=== PATIENT | female | born 1985 | race Caucasian/White ===

== ENCOUNTER → 2016-07-10 | Outpatient (CLI) | payer BC ==
[~2016-07-10] MED LIST: MTR600X PO; OXYC5TAB PO; PRENTAB26 PO
--- NOTE | 2016-07-10 12:43 | MAMMOGRAPHY REPORT ---
ULTRASOUND OF LEFT BREAST: 07/10/2016 CLINICAL HISTORY: The patient reports a focal area of pain in her left breast which she reports as a sharp pain and notices it mostly upon straining or coughing. She has been breast-feeding for 9 mon ths and the pain started at the onset of breast-feeding. She does feel that the pain has been slowl y improving since breast-feeding less frequently. She denies any palpable lumps. COMPARISON: No prior exams were available for comparison. TECHNIQUE: Real-time targeted ultrasound of the left breast was performed. FINDINGS: Real-time, high resolution targeted ultrasound was performed of the area of pain pointed out by the patient, in the left breast at 7:00 radiating towards the nipple. Sonographically normal tissue is seen in this region, without evidence of a mass or other suspicious sonographic abnormality. IMPRESSION: ACR BI-RADS CATEGORY 1: NEGATIVE No etiology for focal left breast pain evident, with no suspicious sonographic abnormality seen in t he region. There is no sonographic evidence of malignancy. Recommend clinical follow-up. The aron ent was verbally notified of the results. Jada Gerber M.D. /:07/10/2016 10:25:25 Assistant Office Manager: Jada Gerber MD, [facility] letter sent: Normal 1/2 BI-RADS Code: ACR BI-RADS Category 1: Negative
== END | disposition home or self-care (01) ==
LOC: C.MAMM 10:04
PROVIDERS: ATTEND Obstetrics & Gynecology
DX: N64.4 Mastodynia (principal)

== ENCOUNTER → 2016-12-04 | Outpatient (CLI) | payer BC | END | disposition home or self-care (01) | LOC: C.PAPS 14:14 | PROVIDERS: ATTEND Physician Assistant | DX: Z01.419 Encounter for gynecological examination (general) (routine) without abnormal findings (principal) ==

== ENCOUNTER → 2017-03-05 | Outpatient (CLI) | payer BC | END | disposition home or self-care (01) | LOC: C.LAB1850 09:41 | PROVIDERS: ATTEND Physician Assistant | DX: N64.52 Nipple discharge (principal) ==

== ENCOUNTER 2022-01-15 05:39 | Inpatient (IN) ==
--- NOTE | 2022-01-06 09:04 | Anesthesiology Consultation ---
Date of Service January 06, 2022 Assessment & Plan (1) Encounter for pre-operative examination: COVID screening: Per assessment on 01/05: No known COVID-19 positive contacts or current COVID-19 related symptoms. Travel screen negative. Surgeon arranging preop COVID testing. Awaiting results. Chart Review Chart Review: clerk entry level initiated History Surgery Operation Date: 01/15/22 07:30 Proposed Procedures p Section (Delivery of Baby Through Abdominal Incision) With - Chika Moran MD, FACOG s Bilateral Tubal Ligation - Chika Moran MD, FACOG Height/Weight Height: 5 ft 3.5 in Weight: 73.482 kg Allergies Allergy/AdvReac Type Severity Reaction Status Date / Time clindamycin AdvReac Unknown Nausea Verified 01/05/22 16:10 erythromycin base AdvReac Unknown nausea Verified 01/05/22 16:10 Medications Home Medications Medication Instructions Recorded Confirmed Last Taken prenat.vits,severiano,bbb-kxfy-usdoy 1 tab PO QAM 06/11/21 01/05/22 Unknown famotidine 20 mg tablet 20 mg PO HS 10/31/21 01/05/22 Unknown ferrous sulfate 325 mg (65 mg 325 mg PO HS 10/31/21 01/05/22 Unknown iron) tablet valacyclovir 500 mg tablet 500 mg PO BID #60 tabs 12/26/21 01/05/22 Unknown (Valtrex) breast pump #1 ea 12/30/21 01/02/22 Unknown Past Medical History Medical History (Updated 01/06/22 @ 09:03 by Virginia Hudson) Acid reflux Gastritis Genital herpes HX, HAD FLARE WAS STARTED THIS AND REASON FOR PROPHYLACTIC FABIANO ACYCLOVIR UNTIL DELIVERY History of Helicobacter pylori infection Remote dx ~2018 History of HPV infection ~2018 Hydronephrosis Plan for further f/u per pt Low iron During Past Family History Family History Grandfather Heart disease Stroke Hypertension Diabetes Aunt Breast cancer Denies family history of Ovarian cancer Lung cancer Colorectal cancer Past Surgical History Surgical History H/O colonoscopy H/O endoscopy History of colposcopy Hx LEEP (loop electrosurgical excision procedure), cervix, Previous section [place] teeth extracted Social History Smoking Status: Never smoker Do You Dip or Chew Tobacco: No substance use type: does not use Testing Laboratory Results 10/07/21 SODIUM 136 POTASSIUM 3.8 CHLORIDE 101 CO2 22 BUN 11 CREATININE 0.8 GLUCOSE 91 TSH 1.77 Electrocardiogram Date: 10/07/21 Findings: + NSR @ (74)
[2022-01-15] MEDS ORDERED: ceFAZolin 2,000 MG in SYRINGE 0 ML IV SCH (06:00)
[2022-01-15] MEDS ORDERED: CITRIC ACID/SODIUM CITRATE 15 ML UDC PO SCH (06:00)
--- NOTE | 2022-01-15 06:15 | History & Physical Report ---
Date of Service January 15, 2022 Assessment & Plan (1) 39 weeks gestation of : (2) Previous delivery affecting : (3) Request for sterilization: Plan Patient to be admitted for planned repeat c/s and bilateral tubal ligation. She is aware of alternative to include and other control options. She desires to proceed and consent reviewed and signed. Aware of permanence, irreversibility, failure, regret and poss ectopic with tubal sterlizat ion as well as alternatives. Labs today. Consent reviewed and signed. Risks, alt and ocmplications reviewed in detail. Admission and Anticipated Discharge Date Admission Date: January 15, 2022 History of Present Illness Chief Complaint: planned c/s Primary Care Provider: José Miguel García MD 36yo at 39+wks tiara presents to L&D for planned repeat cs due to prior c/s. She denies rom, vb. or ctx. +FM. PNC c/b 1. Prior c/s, desires repeat 2. Desires sterilization 3. H/o HSV, on valtrex 4. Maternal hydronephrosis, followed by [facility] PNL rh pos, ri, gbs neg OBH: prior c/s x 1, failed induction, [place] [facility]: h/o LEEP, recent nl pap, +HSV Allergies Allergy/AdvReac Type Severity Reaction Status Date / Time clindamycin AdvReac Unknown Nausea Verified 01/14/22 09:40 erythromycin base AdvReac Unknown nausea Verified 01/14/22 09:40 Home Medications Medication Instructions Recorded Confirmed Type prenat.vits,severiano,qea-ecns-tkbdy 1 tab PO QAM 06/11/21 01/14/22 History famotidine 20 mg tablet 20 mg PO HS 10/31/21 01/14/22 History ferrous sulfate 325 mg (65 mg 325 mg PO HS 10/31/21 01/14/22 History iron) tablet valacyclovir 500 mg tablet 500 mg PO BID #60 tabs 12/26/21 01/14/22 Rx (Valtrex) breast pump #1 ea 12/30/21 01/14/22 Rx Patient History Medical History (Updated 01/15/22 @ 06:13 by Chika Moran MD, FACOG) Acid reflux Gastritis Genital herpes HX, HAD FLARE WAS STARTED THIS AND REASON FOR PROPHYLACTIC VALACYCLOVIR UNTIL DELIVERY History of Helicobacter pylori infection Remote dx ~2018 History of HPV infection ~2018 Hydronephrosis Plan for further f/u per pt Low iron During Surgical History H/O colonoscopy H/O endoscopy History of colposcopy Hx LEEP (loop electrosurgical excision procedure), cervix, Previous section [place] teeth extracted Family History Grandfather Heart disease Stroke Hypertension Diabetes Aunt Breast cancer Denies family history of Ovarian cancer Lung cancer Colorectal cancer Social History Smoking Status: Never smoker Do You Dip or Chew Tobacco: No; Hx Alcohol Use: No Hx Substance Use: No Preferred Language: Slovak Communication Ability: Effective Surgical Assistant Certified Required: No Beliefs That Will Affect Care: None marital status: marital status details: Maximilian Saleh (35) [phone] Current Living Situation: Spouse and Family Current Living Situation Comment: and son current occupational status: employed current occupation: [employer] Other Information That Helps Us Care for You: No Feels Safe at Home: Yes Safety Concerns: Feels Safe At This Time Assistive Devices: None Review of Systems as per Subjective / HPI Physical Exam Constitutional: WD/WN, vitals as above Respiratory: normal respiratory effort, lungs clear to auscultation Cardiovascular: Rate/Rhythm: regular rate and regular rhythm Gastrointestinal (Abdomen): soft gravid nt Musculoskeletal: no edema nontender calves Neurologic: grossly normal Psychiatric: A+Ox3, euthymic affect Genitourinary: +FHTs Results & Data ([facility]) Vital Signs (Past 12 Hours) Vital Signs Temp Resp 01/15/22 05:52 98.2 F 18 Coding Level of Care Code None Diagnoses 39 weeks gestation of Z3A.39 Previous delivery affecting O34.219 Request for sterilization Z30.2
[2022-01-15 06:18] LABS: Basophils # (auto) 0.02 K/uL (0-0.2); Basophils % (auto) 0.2 %; Eosinophils # (auto) 0.12 K/uL (0-0.50); Eosinophils % (auto) 1.5 %; Hematocrit (blood only) 33.6 % (34.1-44.9); Hemoglobin 11.5 g/dl (12.0-16.0); Immature Granulocytes % (auto) 1.2 %; Lymphocytes # (auto) 2.34 K/uL (1.2-3.4); Mean Corpuscular Hemoglobin 31.9 pg (25.0-34.0); Mean Corpuscular Hgb Conc 34.2 g/dL (32.0-36.0); Mean Corpuscular Volume 93.3 fL (80.0-100.0); Mean Platelet Volume 10.5 fL (9.4-12.3); Monocytes # (auto) 0.69 K/uL (0.24-0.82); Monocytes % (auto) 8.5 %; Neutrophils # (auto) 4.81 K/uL (1.4-6.5); Neutrophils % (auto) 59.6 %; Platelet Count 156 K/uL (130-400); RDW Coefficient of Variation 13.2 % (11.5-14.5); RDW Standard Deviation 44.7 fL (36.4-46.3); White Blood Count 8.08 K/ul (4.8-10.8)
[2022-01-15] MEDS ORDERED: MoRPHine SULFATE PF 1 MG/ML 10 ML AMP/VIAL ONE (07:28)
[2022-01-15] MEDS ORDERED: OXYTOCIN 10 UNITS/ML 10ML VIAL ONE (08:29)
[2022-01-15] MEDS ORDERED: KETOROLAC 30 MG/ML VIAL ONE (08:29)
[2022-01-15] MEDS ORDERED: ONDANSETRON INJ 2 MG/ML 2 ML VIAL ONE (08:29)
--- NOTE | 2022-01-15 08:38 | Post Operative Brief Note ---
PG Immediate Post Op with CF Date of Surgery January 15, 2022 Pre & Post Diagnosis Operation Date: 01/15/22 07:30 Pre-Op Diagnosis: 39 week iup. Prior c/s desires repeat c/s. Desire for permanent sterilization. Post-Op Diagnosis: SAME I identified the patient and participated in the time-out.: Yes Procedure Operation Date: 01/15/22 07:30 Actual Procedures p Repeat Low Transverse Section (Delivery of Baby Through Abdominal Incision) delivery of living female child at 0758. - Chika Moran MD, FACOG s Modified [place] Bilateral Tubal Ligation - Chika Moran MD, FACOG Surgeon Chika Moran MD, FACOG Director [employer] Nicole Estimated Blood Loss 500 Findings Consistent with Post-Op Diagnosis (viable female, apgars pending. normal uterus, tubes and ovaries bilaterally) Fluids 1000 Specimens Specimen Description: 1. cord blood 2. Placenta- Hold 3. portion of right and left fallopian tube Drains Carmona Catheter (Inserted following spinal with return of clear yellow urine. ) Anesthesia Type Spinal Complications none Disposition Accompanied Patient To Recovery: No Disposition: L&D
[2022-01-15] MEDS ORDERED: MEPERIDINE HCL 25 MG/ML CARP/VIAL IV PRN (08:46)
[2022-01-15] MEDS ORDERED: ePHEDrine sulfate 50 MG/ML AMP IV PRN (08:46)
[2022-01-15] MEDS ORDERED: HYDROmorphone INJ 0.5 MG/0.5 ML SYR IV PRN (08:46)
[2022-01-15] MEDS ORDERED: NALBUPHINE HCL INJ 10 MG/ML AMP IV PRN (08:46)
[2022-01-15] MEDS ORDERED: NALOXONE HCL 1 MG in SODIUM CHLORIDE 0.9% 1000ML 1,000 ML IV PRN (08:46)
[2022-01-15] MEDS ORDERED: NALOXONE HCL 0.08 MG in SYRINGE 1.8 ML IV PRN (08:46)
[2022-01-15] MEDS ORDERED: diphenhydrAMINE 50 MG/ML VIAL IV PRN ×2 (08:46→09:02)
[2022-01-15] MEDS ORDERED: MoRPHine SULFATE 2 MG/ML CARP IV PRN (08:46)
[2022-01-15] MEDS ORDERED: PROMETHAZINE HCL 6.25 MG in SODIUM CHLORIDE 0.9% 50 ML IV PRN (08:46)
[2022-01-15] MEDS ORDERED: MoRPHine SULFATE PF 1 MG/ML 10 ML AMP/VIAL INT SPINAL ONE (08:46)
[2022-01-15] MEDS ORDERED: LACTATED RINGER'S 500 ML IV PRN (08:46)
[2022-01-15] MEDS ORDERED: NALOXONE HCL 0.4 MG/1 ML VIAL/CARP IV PRN (08:46)
--- NOTE | 2022-01-15 08:52 | Operative Report ---
PG Post Operative Report Pre & Post Diagnosis Operation Date: 01/15/22 07:30 Pre-Op Diagnosis: 1. 39+wk iup 2. Prior section, desires repeat section 3. Desires sterilization Post-Op Diagnosis: SAME I identified the patient and participated in the time-out.: Yes Procedure Operation Date: 01/15/22 07:30 Actual Procedures p Repeat Low Transverse Section s Modified [place] Bilateral Tubal Ligation - Chika Moran MD, FACOG Surgeon Chika Moran MD, FACOG Labor Trainer iNcole Estimated Blood Loss 500 Findings Consistent with Post-Op Diagnosis (viable female, apgars pending. normal uterus, tubes and ovaries bilaterally) Fluids 1000 Specimens cord blood Drains beaver Anesthesia Type Spinal Complications none Disposition Accompanied Patient To Recovery: No Disposition: L&D Indications 36yo at 39+wks with history of prior c/s who desires repeat c/s and also desires permanent sterilization. She is ready to proceed. Description of Procedure The patient was taken to the operating room and identified. After adequate ane sthesia was obtained, she was placed in the supine position with a leftward tilt on the operating table and prepped and draped in the usual sterile fashion. A beaver catheter had already been placed. The knife was used to create a Pfannensteil skin incision that was carried down to the underlying layer of fascia. The fascia was nicked in the midline and this opening was extended laterally using Cabrera scissors. Sorin clamps were placed on the superior and inferior aspect of the fascial incision tenting it upward and the underlying rectus muscles were dissected off the overlying fascia both sharply and bluntly using Cabrera scissors. The rectus muscles were sharply and bluntly in the midline. The peritoneal cavity was bluntly entered into. This opening was stretched. The bladder blade was placed. The vesicouterine peritoneum was elevated and opened up into and the bladder flap was created digitally and bladder blade was replaced. The knife was used to create a hysterotomy and this opening was stretched. The operators hand was placed through the hysterotomy and the bladder blade was removed. The head was elevated and flexed and with fundal pressure the head was delivered. The shoulders and body were rapidly delivered. The cord was clamped and cut and the infant's mouth and nares were bulb suction. The infant was handed off to the awaiting pediatricians. Cord blood was obtained. The placenta was manually expressed. The uterus was exteriorized and cleared of all clots and debris. Dilute IV Pitocin was begun. The uterine tone was improving. The hysterotomy was closed in a running interlocking fashion using 0 Vicryl followed by a second imbricating layer of 0 Vicryl. The hysterotomy was not hemostatic in midline and additional figure of eight suture of 2-0 vicryl was placed for excellent hemostasis. The pelvis was irrigated. The uterus was returned to the abdomen. The gutters were cleared of all clots and debris. The hysterotomy was mary jo nspected and noted to be hemostatic. The fascia was then closed in running fashion using 0 Vicryl. The subcutaneous fat was copiously irrigated and reapproximated using 2-0 chromic. The skin was closed in a subcuticular fashion using 4-0 Vicryl. At this point the procedure was terminated. The patient was transferred to the recovery room in stable condition. All sponge, lap and needle counts are correct x2. I attest to the content of the Intraoperative Record and any orders documented therein. Any exceptions are noted below. OB Procedure Charges [id number] Add on Tubal for C/S
[2022-01-15] MEDS ORDERED: NO NARCOTICS OR SEDATIVES SCH (09:00)
[2022-01-15] MEDS ORDERED: SODIUM CHLORIDE 0.9% 1000ML 1,000 ML IV SCH (09:00)
[2022-01-15] MEDS ORDERED: DC INTRASPINAL MORPHINE SCH (09:00)
[2022-01-15] MEDS ORDERED: diphenhydrAMINE Capsule 25 MG CAP PO PRN (09:02)
[2022-01-15] MEDS ORDERED: HYDROCORTISONE ACETATE 25 MG SUPP PR PRN (09:02)
[2022-01-15] MEDS ORDERED: PROMETHAZINE HCL 25 MG in SODIUM CHLORIDE 0.9% 50 ML IV PRN (09:02)
[2022-01-15] MEDS ORDERED: DIPHTHERIA/TETANUS/PERTUSSIS 0.5 ML SYR/VIAL IM ONE (09:02)
[2022-01-15] MEDS ORDERED: ZOLPIDEM TARTRATE 5 MG TAB PO PRN (09:02)
[2022-01-15] MEDS ORDERED: MAGNESIUM HYDROXIDE SUSP 30 ML UDC PO PRN (09:02)
[2022-01-15] MEDS ORDERED: SENNA 8.6 MG TAB PO PRN (09:02)
[2022-01-15] MEDS ORDERED: BENZOCAINE 20% AER SPR 82.5 GM CAN EXT PRN (09:02)
--- NOTE | 2022-01-15 09:43 | Anesthesiology Progress Note ---
Date of Service January 15, 2022 Anesthesia Post Procedure Vital Signs Vital Signs: Temp Pulse Resp BP Pulse Ox 01/15/22 09:29 58 L 97 01/15/22 09:20 53 L 112/75 01/15/22 09:10 57 L 100 01/15/22 09:00 36.4 C L 57 L 100 01/15/22 09:38 54 L 121/70 01/15/22 09:37 57 L 100 01/15/22 09:32 56 L 98 01/15/22 09:29 57 L 135/74 01/15/22 09:27 58 L 97 01/15/22 09:22 58 L 100 01/15/22 09:19 53 L 112/75 01/15/22 09:17 55 L 99 01/15/22 09:12 57 L 100 01/15/22 09:07 60 99 01/15/22 09:08 57 L 137/86 01/15/22 09:02 57 L 100 01/15/22 08:57 67 99 01/15/22 08:52 57 L 100 01/15/22 08:49 58 L 89 L 01/15/22 08:47 56 L 100 01/15/22 08:43 60 99/52 L 01/15/22 08:42 60 97 01/15/22 06:14 67 109/75 01/15/22 05:52 36.8 C 18 Transfer of Care Handoff Completed per policy Notes Mental Status: alert / awake / arousable Nausea / Vomiting: adequately controlled Pain: adequately controlled Airway Patency, RR, SpO2: stable & adequate BP & HR: stable & adequate Hydration State: stable & adequate Neuraxial Anesthesia: was administered and sensory block is resolving Anesthetic Complications: no major complications apparent and Pt Satisfied with anesthetic care
[2022-01-15] MEDS: OXYTOCIN 20 UNITS in LACTATED RINGER'S 1,000 ML IV SCH ×2 (09:55→18:08)
[2022-01-15] MEDS: ONDANSETRON INJ 2 MG/ML 2 ML VIAL IV PRN ×2 (12:41→18:27)
[2022-01-15] MEDS: SIMETHICONE 80 MG CHEW PO SCH ×3 (13:59→21:09)
[2022-01-15] MEDS: KETOROLAC 30 MG/ML VIAL IV PRN ×2 (14:30→21:09)
[2022-01-15] MEDS: DOCUSATE SODIUM 100 MG CAP PO SCH (21:09)
[2022-01-15] MEDS: FAMOTIDINE 20 MG TAB PO SCH (21:09)
[2022-01-16] MEDS: LACTATED RINGER'S 1,000 ML IV SCH ×2 (01:45→02:36)
[2022-01-16] MEDS ORDERED: ONDANSETRON INJ 2 MG/ML 2 ML VIAL IV PRN (02:47)
[2022-01-16] MEDS: IBUPROFEN 600 MG TAB PO PRN ×4 (02:58→22:39)
[2022-01-16] MEDS: oxyCODONE/ACETAMINOPHEN 5mg/325mg TAB PO PRN ×5 (04:31→20:22)
--- NOTE | 2022-01-16 05:49 | Obstetrical Progress Note ---
Date of Service <Priya Martin DO - Last Filed: 01/16/22 06:30> January 16, 2022 Assessment & Plan <Priya Martin DO - Last Filed: 01/16/22 06:30> (1) : Patient is PPD 1 s/p repeat C section and doing well. - Feels well today. Eating well, voiding well, ambulating well - Pain well controlled with ibuprofen 600 mg Q4H PRN - OOB, ambulation, diet progression as tolerated - After discharge, 6 week follow up with Dr. Moran <Chika Moran MD, FACOG - Last Filed: 01/16/22 07:30> (1) : Day #:: 1 Subjective <Priya Jovita DO Mario - Last Filed: 01/16/22 06:30> Ria Saleh is a 36 yo female is POD #1 following repeat delivery at 39 weeks. She reports feeling well overall this morning. Minimal abdominal cramping and 1/10 pain when laying down and 5/10 pain when up and moving that is well managed on analgesics. She has voided once this morning since her catheter was removed. It was difficult to start her stream, but there was no associated burning or bladder fullness after urination. Tolerating meals overnight and able to ambulate some. Endorses passing gas but denies a bowel movement. Has some persistent lochia with some improvement this morning. Currently breast feeding without issue. Review of Systems Denies fever, chills, sweats. Denies SOB, difficulty breathing, chest pain, palpitations, and chest pressure. Denies breast pain. Denies dysuria. Denies headache or changes in vision. Physical Exam <Priya Martin DO - Last Filed: 01/16/22 06:30> General: Alert and oriented. No acute distress. CV: Regular rate and rhythm. No murmurs. Respiratory: CTA bilaterally. No rhonchi, wheezes, or crackles. No increased work of breathing. Abdomen: Positive bowel sounds. Soft, nontender, and nondistended. Uterus: Fundus firm and palpable. Surgical scar without pain or tenderness. Lower extremities: No LE edema. No deep calf pain. Moi's negative bilaterally. Results & Data ([facility]) <Priya Jovita Martin, DO - Last Filed: 01/16/22 06:30> Vital Signs (Past 12 Hours) Vital Signs Temp Pulse Resp BP Pulse Ox Pulse Ox O2 Del Method 01/16/22 03:20 99 01/16/22 03:00 16 99 01/16/22 03:00 99 01/16/22 02:57 117/77 01/16/22 02:56 36.7 C 53 L 16 98 01/16/22 02:33 96 01/16/22 01:41 13 94 01/16/22 01:41 94 01/16/22 00:42 16 100 01/16/22 00:42 100 01/15/22 22:40 16 98 01/15/22 22:40 98 01/15/22 21:35 14 97 01/15/22 21:35 97 01/15/22 20:40 16 98 01/15/22 20:40 98 01/15/22 23:35 15 97 01/15/22 23:35 36.6 C 55 L 15 110/72 97 Room Air 01/15/22 23:35 97 01/15/22 19:50 16 100 01/15/22 19:50 36.5 C 59 L 15 123/85 100 Room Air 01/15/22 19:50 100 01/15/22 18:07 18 99 O2 Del Method 01/16/22 03:20 Room Air 01/16/22 03:00 01/16/22 03:00 Room Air 01/16/22 02:57 01/16/22 02:56 01/16/22 02:33 Room Air 01/16/22 01:41 01/16/22 01:41 Room Air 01/16/22 00:42 01/16/22 00:42 Room Air 01/15/22 22:40 01/15/22 22:40 Room Air 01/15/22 21:35 01/15/22 21:35 Room Air 01/15/22 20:40 01/15/22 20:40 Room Air 01/15/22 23:35 01/15/22 23:35 01/15/22 23:35 Room Air 01/15/22 19:50 01/15/22 19:50 01/15/22 19:50 Room Air 01/15/22 18:07 <Chika Moran MD, FACOG - Last Filed: 01/16/22 07:30> Co-Signing Physician Notes Resident Physician Supervision Note: I was present with Dr. Martin during the history and exam. I discussed the case with the resident and agree with the findings and plan as documented in the note. Any exceptions or clarifications are listed here: pt doing well, denies pain issues, eating, voiding, ambul without issues. abd soft ff 2 down nt, incision c/d/i with bruising. ext nt calves. pod #1 s/p c/s. hgb noted. routine care, adv diet, ambul, po pain meds. breast, rh pos/ri. Documented By: Chika Moran MD, FACOG Resident Activity Tracking <Priya Martin, DO - Last Filed: 01/16/22 06:30> Resident Involvement: Resident Care Provided Care Provided: OB Delivery
[2022-01-16] MEDS ORDERED: LACTATED RINGER'S 1,000 ML IV SCH (06:00)
[2022-01-16] MEDS ORDERED: CITRIC ACID/SODIUM CITRATE 15 ML UDC PO SCH (06:00)
[2022-01-16] MEDS ORDERED: ceFAZolin 2,000 MG in SYRINGE 0 ML IV SCH (06:00)
[2022-01-16 06:59] LABS: Basophils # (auto) 0.03 K/uL (0-0.2); Basophils % (auto) 0.3 %; Eosinophils # (auto) 0.11 K/uL (0-0.50); Eosinophils % (auto) 1.2 %; Hematocrit (blood only) 33.2 % (34.1-44.9); Hemoglobin 11.5 g/dl (12.0-16.0); Immature Granulocytes # (auto) 0.06 K/uL (0.00-0.02); Immature Granulocytes % (auto) 0.6 %; Lymphocytes % (auto) 16.8 %; Mean Corpuscular Hemoglobin 32.8 pg (25.0-34.0); Mean Corpuscular Hgb Conc 34.6 g/dL (32.0-36.0); Mean Corpuscular Volume 94.6 fL (80.0-100.0); Mean Platelet Volume 9.8 fL (9.4-12.3); Monocytes # (auto) 0.66 K/uL (0.24-0.82); Monocytes % (auto) 6.9 %; Neutrophils # (auto) 7.04 K/uL (1.4-6.5); Neutrophils % (auto) 74.2 %; Platelet Count 118 K/uL (130-400); RDW Coefficient of Variation 13.4 % (11.5-14.5); RDW Standard Deviation 45.6 fL (36.4-46.3); Red Blood Count 3.51 M/uL (3.93-5.22)
[2022-01-16] MEDS: SIMETHICONE 80 MG CHEW PO SCH ×4 (07:58→20:20)
[2022-01-16] MEDS: PRENATAL VITAMIN 1 TAB PO SCH (07:59)
[2022-01-16] MEDS: DOCUSATE SODIUM 100 MG CAP PO SCH ×2 (07:59→20:20)
[2022-01-16] MEDS: FERROUS SULFATE 325 MG TAB PO SCH (07:59)
[2022-01-16] MEDS: FAMOTIDINE 20 MG TAB PO SCH (20:21)
[2022-01-17] MEDS: oxyCODONE/ACETAMINOPHEN 5mg/325mg TAB PO PRN ×2 (00:59→06:07)
--- NOTE | 2022-01-17 05:43 | Obstetrical Progress Note ---
Date of Service <Priya Martin DO - Last Filed: 01/17/22 06:18> January 17, 2022 Assessment & Plan <Priya Jovita Martin DO - Last Filed: 01/17/22 06:18> (1) : Patient is PPD 2 s/p repeat C/S with tubal ligation and doing well. - Feels well today. Eating well, voiding well, ambulating well - Pain well controlled with narcotics - OOB, ambulation, diet progression as tolerated - Plan to discharge today - After discharge, 6 week follow up with Dr. Moran <Radha Conrad MD - Last Filed: 01/17/22 07:17> (1) : Subjective <Priya Jovita DO Mario - Last Filed: 01/17/22 06:18> Ria Saleh is a 36 yo female is POD #2 following delivery at 39 weeks. She reports feeling well overall this morning. Some abdominal cramping with breast feeding and 2-3/10 pain well managed on analgesics. Voiding without issue. Tolerating meals overnight and able to ambulate some. Endorses passing gas but no bowel movement. Has some persistent lochia with some improvement this morning. Currently breast feeding. Review of Systems Denies fever, chills, sweats. Denies SOB, difficulty breathing, chest pain, palpitations, and chest pressure. Denies breast pain. Denies dysuria. Denies headache or changes in vision. Physical Exam <Priya Martin DO - Last Filed: 01/17/22 06:18> General: Alert and oriented. No acute distress. CV: Regular rate and rhythm. No murmurs. Respiratory: CTA bilaterally. No rhonchi, wheezes, or crackles. No increased work of breathing. Abdomen: Positive bowel sounds. Soft, nontender, and nondistended. Uterus: Fundus firm and palpable 3 cm below umbilicus. Surgical scar clean and healing well. There is some bruising around the middle 1/3 of her incision. Lower extremities: No LE edema. No deep calf pain. Moi's negative bilaterally. Results & Data ([facility]) <Priya Martin DO - Last Filed: 01/17/22 06:18> Vital Signs (Past 12 Hours) Vital Signs Temp Pulse Resp BP Pulse Ox O2 Del Method 01/17/22 01:05 36.7 C 60 16 127/86 98 Room Air 01/16/22 20:00 36.7 C 76 18 138/81 100 Room Air <Radha Conrad MD - Last Filed: 01/17/22 07:17> Co-Signing Physician Notes Resident Physician Supervision Note: I interviewed and examined the patient. Discussed with Dr. Martin and agree with findings and plan as documented in the note. Any exceptions or clarifications are listed here: POD2 s/p RLTCS/BTL, doing well. VSS, exam benign and wnl, incision c/d/i. Meeting all milestones, stable for d/c home today Documented By: Radha Conrad MD Resident Activity Tracking <Priya Martin DO - Last Filed: 01/17/22 06:18> Resident Involvement: Resident Care Provided Care Provided: OB Delivery
[2022-01-17 07:24] LABS: Hematocrit (blood only) 33.6 % (34.1-44.9); Hemoglobin 11.5 g/dl (12.0-16.0)
[2022-01-17] MEDS: DOCUSATE SODIUM 100 MG CAP PO SCH (07:41)
[2022-01-17] MEDS: FERROUS SULFATE 325 MG TAB PO SCH (07:41)
[2022-01-17] MEDS: PRENATAL VITAMIN 1 TAB PO SCH (07:42)
[2022-01-17] MEDS: SIMETHICONE 80 MG CHEW PO SCH (07:42)
[2022-01-17] MEDS ORDERED: bisacodyL 10 MG SUPP PR PRN (08:43)
--- NOTE | 2022-01-19 15:18 | Discharge Summary ---
Date of Service Date of admission: January 15, 2022 Date of discharge: January 17, 2022 Admission HPI Per Admitting Provider 36yo at 39+wks tiara presents to L&D for planned repeat cs due to prior c/s and also desires sterilization. She denies rom, vb. or ctx. +FM. PNC c/b 1. Prior c/s, desires repeat 2. Desires sterilization 3. H/o HSV, on valtrex 4. Maternal hydronephrosis, followed by [facility] PNL rh pos, ri, gbs neg OBH: prior c/s x 1, failed induction, [place] GY[facility]: h/o LEEP, recent nl pap, +HSV Discharge Data Consultations 01/15/22 05:39 Consult Anesthesiology Stat Procedures Performed Operation Date: 01/15/22 07:30 Actual Procedures p Repeat Low Transverse Section (Delivery of Baby Through Abdominal Incision) delivery of living female child at 0758. - Chika Moran MD, [facility] Modified [place] Bilateral Tubal Ligation - Chika Moran MD, [facility] Course (1) 39 weeks gestation of : (2) Request for sterilization: (3) Previous delivery affecting : Plan The patient underwent the above stated procedure without incident and her postoperative course and recovery was uncomplicated. On her postoperative day #2 she was tolerating a regular diet, voiding spontaneously, ambulating without problem and was using oral meds for adequate pain control. Her postoperative hemoglobin was 11.5. She was given written and verbal discharge instructions and told to followup in office at 6wks. She was given appropriate pain medicine prescriptions. Coding Level of Care Code None Diagnoses 39 weeks gestation of Z3A.39 Request for sterilization Z30.2 Previous delivery affecting O34.219
== END 2022-01-17 08:45 | disposition home or self-care (01) | DRG 785 ==
LOC: 4S1 05:39 → EDSTATUS 07:30 → 4E2 12:28
PROC: M.PPTLD (2022-01-15 07:30)